=== PATIENT | male | born 1935 | race Caucasian/White ===

== ENCOUNTER 2019-04-11 15:19 | Emergency (ER) | payer MEDICARE, OTHER, SELFPAY ==
[2019-04-11 15:23] VITALS: BP 143/68; PULSE 78; RESP 12; TEMP 36.6; O2SAT 95
--- NOTE | 2019-04-11 16:27 | ED.GENADUL_ITS ---
Discharge Plan Disposition Patient Disposition: HOME Condition: Stable Discharge Details Chief Complaint: Orthopedic Clinical Impression: Skin tear of forearm without complication, Hematoma and contusion Primary Care Provider: Leny,Local ED Provider: Nic Alvarez Home Meds and New Rx's Prescriptions: Continued losartan 50 mg Tablet 50 mg PO DAILY RF: 0 Elmiron 100 mg Capsule 100 mg PO TID RF: 0 aspirin 325 mg Tablet 325 mg PO DAILY RF: 0 methenamine hippurate 1 gram Tablet 1 g PO BID RF: 0 hydrochlorothiazide 12.5 mg Capsule 12.5 mg PO DAILY RF: 0 omeprazole 20 mg Capsule,Delayed Release(Dr/Ec) 20 mg PO DAILY RF: 0 lovastatin 20 mg Tablet 20 mg PO DAILY RF: 0 diphenhydramine-acetaminophen [Tylenol PM Extra Strength] 25-500 mg Tablet 1 tab PO QHS PRNRF: 0 sotalol 240 mg Tablet 240 mg PO BID RF: 0 Humalog U-100 Insulin 100 unit/mL Cartridge 60 unit SUBCUT DAILY RF: 0 cholecalciferol (vitamin D3) [Vitamin D3] 2,000 unit Capsule 2,000 unit PO DAILY RF: 0 Creon 36,000-114,000- 180,000 unit Capsule,Delayed Release(Dr/Ec) 3 cap PO BID RF: 0 Discharge Instructions Instructions: Skin Tear (ED), Hematoma (ED) Additional Instructions: Please watch the wound and return for any signs of infection. Otherwise leave dressing on for 7 days and then you may remove dressing on the eighth day. Feel free to take whatever normal [id number] pain medication that you take for discomfort. Follow-up with your primary care provider as needed for reassessment. Referrals: Primary Care Provider [Outside] (As needed for reassessment) Discharge Data Discharge Date/Time-TO BE ENTERED AT DEPARTURE: 04/11/19 16:58 Medical Decision Making Simple mechanical fall, skin tear right forearm, no bony tenderness, full range of motion, denies any pain or discomfort. Patient does have obvious skin tear that is approximately 10 cm in length with hematoma to the forearm but otherwise unremarkable exam. At this time I do not feel that patient needs any radiological imaging. full time staff interpreter performed acute wound care and Mepilex Ag was ap plied to wound. Otherwise I do not feel that any other interventions are needed. full time staff interpreter did inform me that patient needed Tdap which was ordered and appropriate. Return precautions discussed. After discussion of diagnosis and plan of care patient has no further needs, questions, or concerns and states clear understanding to return to the emergency department for any worsening symptoms. HPI General Mode of arrival: ambulatory . Date/Time Provider Initiated Documentation: 04/11/19 15:36 . Limitations to Documentation: no limitations . Information obtained by: patient and RN notes reviewed . History of Present Illness 83 year old M presents to the emergency department with the chief complaint of right arm injury, described as mild, Quality is described as other (denies pain), and is localized to the right and upper extremity. Patient started experiencing this hour(s) (1) and it has been constant. Patient notes no other symptoms.. Patient did receive the following treatments prior to arrival, none Related Data Home Medications Medication Instructions Recorded Confirmed Creon 3 cap PO BID 04/11/19 04/11/19 Elmiron 100 mg PO TID 04/11/19 04/11/19 Humalog U-100 Insulin 60 unit SUBCUT DAILY 04/11/19 04/11/19 aspirin 325 mg PO DAILY 04/11/19 04/11/19 cholecalciferol (vitamin D3) 2,000 unit PO DAILY 04/11/19 04/11/19 [Vitamin D3] diphenhydramine-acetaminophen 1 tab PO QHS PRN 04/11/19 04/11/19 [Tylenol PM Extra Strength] hydrochlorothiazide 12.5 mg PO DAILY 04/11/19 04/11/19 losartan 50 mg PO DAILY 04/11/19 04/11/19 lovastatin 20 mg PO DAILY 04/11/19 04/11/19 methenamine hippurate 1 g PO BID 04/11/19 04/11/19 omeprazole 20 mg PO DAILY 04/11/19 04/11/19 sotalol 240 mg PO BID 04/11/19 04/11/19 Allergies Allergy/AdvReac Type Severity Reaction Status Date / Time No Known Allergies Allergy Unverified 04/11/19 15:26 General Stated Complaint: Orthopedic OXANA: 3 Review of Systems Cardiovascular Denies syncope Musculoskeletal Reports as per HPI, Denies numbness and Denies tingling Integumentary/Breasts Denies rash, Denies sores and Denies wounds Neurologic Denies syncope, Denies numbness and Denies tingling PFS Social History Smoking/Tobacco Use Status: Never Alcohol Intake: never Drug use: Never Substance use type: does not use Do you feel safe at home: Yes Do you feel safe in your relationship?: Yes Exam Const General: cooperative and no acute distress Orientation: alert, awake and oriented x3 Resp Effort & Inspection: normal respiratory effort and able to speak in complete sentences Cardio Rate: regular rate Rhythm: regular rhythm Extrem Right upper extremity: elbow/forearm Details: swelling Location: of the mid- shaft forearm, normal ROM, abrasion (skin tear 10cm) forearm mid anterolateral , ecchymosis and distal pulses intact; no tenderness, wrist Details: normal to inspection and normal ROM; no tenderness, no swelling, no ecchymosis and no deformity and hand Details: normal to inspection, normal capillary refill, neuromotor exam normal, neurosensory exam normal and normal ROM of fingers Course Vital Signs Temperature 36.6 C 04/11/19 15:23 Pulse 78 04/11/19 15:23 Respiratory Rate 12 04/11/19 15:23 Blood Pressure 143/68 H 04/11/19 15:23 Pulse Oximetry 95 04/11/19 15:23 Temperature 36.6 C 04/11/19 15:23 Temperature Source Temporal Artery Scan 04/11/19 15:23 Pulse 78 04/11/19 15:23 Respiratory Rate 12 04/11/19 15:23 Respiratory Effort Non-Labored 04/11/19 15:24 Blood Pressure 143/68 H 04/11/19 15:23 Blood Pressure Position Sitting 04/11/19 15:23 Pulse Oximetry 95 04/11/19 15:23 Oxygen Delivery Method Room Air 04/11/19 15:23 Oxygen Flow Rate 0 04/11/19 15:23 Pain Level 0 04/11/19 15:53
== END 2019-04-11 16:58 | disposition home or self-care (01) ==
PROVIDERS: Emergency Provider Nurse Practitioner Family
DX: S51.822A Laceration with foreign body of left forearm, initial encounter (principal); S50.12XA Contusion of left forearm, initial encounter; W01.0XXA Fall on same level from slipping, tripping and stumbling without subsequent striking against object, initial encounter
CPT/HCPCS: 90471; 99282

== ENCOUNTER 2021-04-10 04:12 | Outpatient (CLI) | payer OTHER, SELFPAY ==
[2021-04-10 12:14] LABS: Hemoglobin A1C 7.7 % (<5.7)
== END 2021-04-10 04:13 | disposition home or self-care (01) ==
DX: E10.65 Type 1 diabetes mellitus with hyperglycemia (principal)
CPT/HCPCS: 36415; 83036